=== PATIENT | female | born 1970 | race Hispanic/Latino ===

== ENCOUNTER 2016-10-12 08:26 | Emergency (ER) | payer MEDICAID ==
[2016-10-12 09:08] LABS: Basophils % (Auto) 0.3 % (0.0-1.8); Eosinophils % (Auto) 0.9 % (0.0-4.3); Hematocrit 38.4 % (30.3-42.9); Mean Corpuscular HGB Conc 34 % (30-34); Mean Corpuscular Hemoglobin 31 pg (28-32); Mean Corpuscular Volume 91 fl (79-97); Platelet Count 193 K/mm3 (140-440); Red Blood Count 4.24 M/mm3 (3.65-5.03); Red Cell Distribution Width 12.8 % (13.2-15.2)
[2016-10-12 09:19] LABS: Alanine Aminotransferase 11 units/L (7-56); Albumin 4.1 g/dL (3.9-5); Albumin/Globulin Ratio 1.4 %; Alkaline Phosphatase 42 units/L (35-129); Anion Gap 17 mmol/L; Bilirubin,Total 0.8 mg/dL (0.1-1.2); Blood Urea Nitrogen 11 mg/dL (7-17); Calcium 9.1 mg/dL (8.4-10.2); Carbon Dioxide 25 mmol/L (22-30); Glucose 111 mg/dL (65-100); Lipase 33 units/L (13-60); Potassium 4.1 mmol/L (3.6-5.0); Sodium 138 mmol/L (137-145)
[2016-10-12 09:19] LABS: Bacteria,Urine 2+ /HPF (Negative); Bilirubin,Urine NEG (Negative); Blood,Urine NEG (Negative); Ketones,Urine NEG (Negative); Leukocyte Esterase,Urine MOD (Negative); Mucus,Urine FEW /HPF; Nitrite,Urine NEG (Negative); Protein,Urine <15 mg/dL mg/dL (Negative); Urobilinogen,Urine < 2.0 mg/dL (<2.0)
[2016-10-12] MEDS ORDERED: NACL 0.9% 1000 ML 1,000 ML IV ONE (10:25)
[2016-10-12] MEDS ORDERED: ZOFRAN IV ONE (10:25)
[2016-10-12] MEDS ORDERED: TORADOL IV ONE (10:25)
--- NOTE | 2016-10-12 10:28 | Emergency Department Report ---
ED Abdominal Pain HPI - General Chief Complaint: Abdominal Pain Stated Complaint: RT SIDE PAIN Time Seen by Provider: 10/12/16 10:00 Source: patient Mode of arrival: Ambulatory Limitations: No Limitations - History of Present Illness MD Complaint: abdominal pain -: Gradual, days(s) (2) Location: RLQ, suprapubic Radiation: none Migration to: no migration Severity: moderate Quality: cramping Consistency: intermittent Improves With: nothing Worsens With: nothing Associated Symptoms: nausea - Related Data Previous Rx's Medication Instructions Recorded Last Taken Type Dicyclomine [Bentyl] 20 mg PO BID #20 tablet 10/12/16 Unknown Rx Esomeprazole Magnesium [NexIUM 20 mg PO QDI #20 capsule. 10/12/16 Unknown Rx 24Hr] Allergies Allergy/AdvReac Type Severity Reaction Status Date / Time No Known Allergies Allergy Unverified 10/12/16 08:31 ED Review of Systems ROS: Stated complaint: RT SIDE PAIN Other details as noted in HPI Comment: All other systems reviewed and negative ED Past Medical Hx - Past Medical History Previous Medical History?: Yes Additional medical history: vaginal delivery x 1 - Surgical History Past Surgical History?: Yes Additional Surgical History: x 1 - Social History Smoking Status: Never Smoker Substance Use Type: Non Opiate Pain - Medications Home Medications: Home Medications Medication Instructions Recorded Confirmed Last Taken Type Dicyclomine [Bentyl] 20 mg PO BID #20 tablet 10/12/16 Unknown Rx Esomeprazole Magnesium [NexIUM 20 mg PO QDI #20 capsule. 10/12/16 Unknown Rx 24Hr] ED Physical Exam - General Limitations: No Limitations General appearance: alert, in no apparent distress - Head Head exam: Present: atraumatic - ENT ENT exam: Present: mucous membranes moist - Neck Neck exam: Present: normal inspection - Respiratory Respiratory exam: Present: normal lung sounds bilaterally. Absent: respiratory distress - Cardiovascular Cardiovascular Exam: Present: regular rate, normal rhythm. Absent: systolic murmur, diastolic murmur, rubs, gallop - GI/Abdominal GI/Abdominal exam: Present: soft, tenderness. Absent: guarding, rebound, rigid , normal bowel sounds, diminished bowel sounds - Extremities Exam Extremities exam: Present: normal inspection - Back Exam Back exam: Present: normal inspection - Skin Skin exam: Present: warm, dry, intact, normal color. Absent: rash ED Course Vital Signs 10/12/16 08:31 Temperature 97.5 F L Pulse Rate 88 Respiratory 18 Rate Blood Pressure 129/64 O2 Sat by Pulse 99 Oximetry ED Medical Decision Making - Lab Data Result diagrams: 10/12/16 08:44 10/12/16 08:44 - Medical Decision Making Patient doing well here in her ER stay , abdominal pain has improved, no N/V , labs negative ct abd and pelvis with negative results , will attempt po challenge and discharge with close follow up in next 48 h , clear dc instructions given for abdominal pain Critical care attestation.: If time is entered above; I have spent that time in minutes in the direct care of this critically ill patient, excluding procedure time. ED Disposition Clinical Impression: Abdominal pain Disposition: DISCHARGED TO HOME OR SELFCARE Is pt being admited?: No Does the pt Need Aspirin: No Condition: Good Instructions: Abdominal Pain (ED) Prescriptions: Dicyclomine [Bentyl] 20 mg PO BID #20 tablet Esomeprazole Magnesium [NexIUM 24Hr] 20 mg PO QDI #20 capsule. Referrals: PRIMARY CARE, [Primary Care Provider] - 3-5 Days Forms: Work/School Release Form(ED)
[2016-10-12] MEDS ORDERED: NACL ONE (10:30)
--- NOTE | 2016-10-12 11:19 | Cat Scan Report ---
CT SCAN OF THE ABDOMEN AND PELVIS WITH CONTRAST: HISTORY: Abdominal pain. TECHNIQUE: Helical CT in 1.25mm intervals following IV contrast. Sagittal and coronal reconstructions. FINDINGS: The liver is normal in size and is without focal defect. No gallstones or biliary dilatation are noted. The spleen and pancreas demonstrate a normal size and attenuation with no evidence of abnormal mass. The kidneys are normal in size and position with no evidence of hydronephrosis or mass. The adrenal glands are normal. There is no intestinal obstruction or ascites. The appendix is not confidently identified, correlate with surgical history. The abdominal aorta is normal. 1 cm left ovarian cyst is identified. The right ovary and uterus are unremarkable. There is no evidence of peritoneal air or fluid. There is no evidence of any abnormal masses or fluid collections within the pelvis. No adenopathy is identified. The bladder is normal. Chronic left transverse process fractures at L2 and L3 are noted. IMPRESSION: 1 cm left ovarian cyst. Otherwise, unremarkable exam of the abdomen and pelvis.
[2016-10-12 12:41] VITALS: BP 123/64
== END 2016-10-12 12:41 | disposition home or self-care (01) ==
LOC: ED 08:26
DX: R10.31 Right lower quadrant pain (principal)
CPT/HCPCS: 36415; 74177; 80053; 81001; 83690; 85025; 96361; 96374; 96375; 99284; J1885; J2405; J7030; Q9967